=== PATIENT | male | born 1990 | race Two or more races ===

== ENCOUNTER 2024-11-07 15:10 | Outpatient (CLI) | payer OTHER | END 2024-11-07 15:20 | disposition home or self-care (01) | LOC: PPH VACUNA 15:10 | PROVIDERS: ATTEND Emergency Medicine Pediatric Emergency Medicine | DX: Z23 Encounter for immunization (principal) ==

== ENCOUNTER 2025-08-25 09:00 | Outpatient (CLI) | payer OTHER | END 2025-08-25 09:10 | disposition home or self-care (01) | LOC: PPH VACUNA 09:00 | PROVIDERS: ATTEND Emergency Medicine Pediatric Emergency Medicine | DX: Z23 Encounter for immunization (principal) ==